=== PATIENT | male | born 1965 | race Caucasian/White ===

== ENCOUNTER 2019-03-29 10:26 | Outpatient (REF) | payer BC, SELFPAY ==
[2019-03-29 19:57] LABS: Absolute Basophil Count 0.02 k/cumm (0.0-0.2); Absolute Eosinophil Count 0.04 k/cumm (0.0-0.7); Absolute Lymphocyte Count 1.25 k/cumm (1.2-3.4); Absolute Monocyte Count 0.34 k/cumm (0.11-0.7); Absolute Neutrophil Count 2.51 k/cumm (1.2-6.7); Basophils % 0.5; HCT 43.6 % (40.0-50.0); HGB 14.4 g/dL (13.5-17.5); Mean Corpuscular Hemoglobin 30.2 pg (27.0-33.0); Mean Corpuscular Volume 91.4 fL (80-95); Monocytes % 8.2; Neutrophils % 60.3; Platelet Count 141 x1000/uL (130-400); RBC 4.77 m/cumm (4.50-6.00); RBC Distribution Width 13.3 % (11.8-14.1); White Blood Cell Count 4.16 k/cumm (4.4-10.8)
[2019-03-29 20:17] LABS: Anion Gap 10.5 mmol/L (3-11); BUN 18 mg/dL (7-18); CO2 26.5 mmol/L (21.0-32.0); CREATININE 0.67 mg/dL (0.70-1.30); Chloride 106 mmol/L (98-107); Glucose 96 mg/dL (70-100); Sodium 143 mmol/L (136-145); TSH 1.66 uIU/mL (0.358-3.74)
[2019-03-29 20:52] LABS: Ferritin 78 ng/mL (8-388)
[2019-03-31 07:09] LABS: Vitamin D 25 Total 25.9 ng/ml (30-100)
[2019-03-31 09:45] LABS: PSA, Screening 0.6 ng/ml (0-3.5)
== END 2019-03-29 10:46 ==
LOC: NCHCN 10:26
PROVIDERS: PCP Family Medicine; Visit Provider Nurse Practitioner Family
DX: Z00.00 Encounter for general adult medical examination without abnormal findings (principal); R53.83 Other fatigue; R45.84 Anhedonia; Z12.5 Encounter for screening for malignant neoplasm of prostate
CPT/HCPCS: 80048; 82306; 84153; 82728; 84443; 85025

== ENCOUNTER 2019-06-27 10:13 | Day surgery (SDC) | payer OTHER, SELFPAY ==
--- NOTE | 2019-06-27 06:44 | W.COLOREPORT ---
Date of service: 06/27/19 Time of Service: 11:11 Colonoscopy Report Date of procedure: 06/27/19 Pre-op diagnosis general: Colon Cancer Screening Post-op diagnosis procedure note: other (polyps) Procedure: Colonoscopy with polypectomy Surgeon: Ashly Brooks Anesthesia proc note operative: other (General/ ASA 2/Casey Gallegos CRNA) Estimated blood loss (mL): 3 Pathology: other (Rectal polyp, sigmoid colon x2, descending colon polyp) Complications: None Disposition: same day Indications: Mr. Hennessy was seen in the office for his first Colonoscopy. He has no family history of colon cancer that he is aware of. Risks, benefits and complications have been reviewed. Complications include but are not limited to bleeding, pain, perforation, missed small lesion/polyp, sore throat, aspiration and adverse reaction to the medications. Questions were entertained and answered to their satisfaction and they wished to proceed. No guarantees were given or implied. Prep: Miralax/Dulcolax Procedure Start Time: 11:11 Procedure End Time: 11:39 Retraction Time: 14 minutes Findings: 3 small polyps Procedure Description: After informed consent was obtained the patient was taken to the procedure room and placed in a left decubitous position. Monitors were applied and a time out was done. The patients name, date of , procedure, allergies to medications and metal in their body was reviewed. The patient was then sedated. Once sedated and comfortable a rectal exam was done. External exam was normal. Internal exam revealed a normal sphincter tone and no palpable masses. The prostate felt smooth. The scope was then introduced and retro-flexed. No internal hemorrhoids were identified. There was a polyp noted at the proximal rectum and it was removed with forceps. The scope was then advanced to the cecum without difficulty. The TI and appendiceal orifice were identified. The prep was adequate. The scope was then slowly retracted over 14 minutes back into the rectum. Polyps were removed with cold forcpes in the descending colon x1, sigmoid colon x2 and rectum x1. The scope was removed and the patient was woken up and taken back to Same day surgery in stable condition. The patient tolerated the procedure well and there were no immediate complications. Follow up: The patient should follow up in 3-5 years unless they develop changes in bowel habits or other new gastrointestinal complaints.
--- NOTE | 2019-06-27 06:45 | W.PM.DSUDISC ---
Discharge Plan Disposition Patient Disposition: HOME Condition: Good Discharge Details Reason For Visit: Colonoscopy Attending Provider: Ashly Brooks Primary Care Provider: Harika Munoz V Home Meds and New Rx's Prescriptions: Continued ibuprofen 200 mg capsule 600 mg PO PRN RF: 0 cholecalciferol (vitamin D3) 1,000 unit capsule 1,000 unit PO DAILY RF: 0 Discontinued polyethylene glycol 3350 17 gram/dose powder 238 g PO ONCE Qty: 238 RF: 0 bisacodyl [Dulcolax (bisacodyl)] 5 mg tablet,delayed release (DR/EC) 5 mg PO ONCE Qty: 4 RF: 0 No Action multivitamin [Daily Multi-Vitamin] Tablet 1 tab PO DAILY RF: 0 cyanocobalamin (vitamin B-12) [Vitamin B-12] 1,000 mcg Tablet 1,000 mcg PO DAILY RF: 0 Discharge Instructions Instructions: Colonoscopy (DC), Colorectal Polyps (GEN) Additional Instructions: Findings: 4 small polyps Follow up: 3-5 years Please call if you develop: fevers >101.5 Nausea or Vomiting Abdominal pain that is not transient DAY SURGERY UNIT POST ENDOSCOPY INSTRUCTIONS 1. Because there will be medication in your system for the next 24 hours, you may feel a little sleepy. Your coordination will be affected. Therefore: a. Do not drive or operate dangerous equipment for 24 hours. b. Do not drink alcohol beverages for 24 hours (not even beer). c. Plan to go home and rest for the day. 2. Generally there are no restrictions on your activity after a day or so has gone by, but you may feel a bit fatigued for a few days. 3 After you arrive home you may have a light meal and return to a normal diet as you can tolerate it without feeling sick to your stomach. 4. After surgery, you may feel pain or discomfort. This should be only transient, but if it persists please contact your doctor. 5. If there are any questions regarding the findings of your procedure, please feel free to contact your doctor. 6. If you are unable to contact your doctor with a problem, contact the hospital at [phone]. 7. Continue all your regular medications unless directed otherwise. I understand the above instructions and have no questions. Signature of Patient or Responsible Adult Escort Date/Time Name of Responsible Adult Escort Signature of Nurse Date/Time Activity:: Activity as Tolerated Diet:: As Tolerated Discharge Orders Discharge Orders: Discharge Order (Routine); Ordered 06/27/19 Ordered By: Ashly Brooks DS: Diagnosis Discharge Diagnosis (1) S/P colonoscopy: Status: Acute (2) Colorectal polyps: Status: Acute
[2019-06-27 10:13] VITALS: BP 121/74; PULSE 71; RESP 17; TEMP 36.4; O2SAT 98
[2019-06-27] MEDS: Lactated Ringers 1,000 ML 80 ML IV (10:53)
--- NOTE | 2019-06-27 11:11 | BOWEL_PTH ---
PATIENT: Miguel Hennessy LOC: [facility] U#:[id number] AGE/SX: 54/M ROOM: RE06/27/[address]: Ashly Brooks MD : 1965 BED: DIS: 06/27/2019 SPEC #: [id number] RECD: 06/27/19 12:59 STATUS: IRIS REQ #: [id number] KANU: 06/27/19 11:[address]: Ashly Brooks DEPT: Surgical Specimen RECD BY: Rosalia Wolf ENTERED: 06/27/19 13:00 SP TYPE: Bowel OTHR DR: Harika Munoz V Tissues: 1 - BIOPSY BOWEL 2 - BIOPSY BOWEL 3 - BIOPSY BOWEL Procedures: GROSS AND MICRO LEVEL 4 Comments: [id number]
[2019-06-27 12:15] VITALS: BP 109/80; PULSE 63; RESP 16; TEMP 36.3; O2SAT 97
== END 2019-06-27 12:25 | disposition home or self-care (01) ==
LOC: SUR 10:14
PROVIDERS: PCP Family Medicine; Visit Provider Surgery
PROC: 0DJD8ZZ Inspection of Lower Intestinal Tract, Via Natural or Artificial Opening Endoscopic (ICD-10-PCS; CPT 45378; principal; 2019-06-27 11:15)
DX: Z12.11 Encounter for screening for malignant neoplasm of colon (principal); D12.8 Benign neoplasm of rectum; K63.5 Polyp of colon
CPT/HCPCS: 45380; 88305

== ENCOUNTER 2019-08-25 10:22 | Outpatient (REF) | payer OTHER, SELFPAY ==
[2019-08-25 20:43] LABS: Calculated LDL 86 mg/dL; Cholesterol 136 mg/dL (50-200); Glucose 97 mg/dL (70-100); HDL Cholesterol 42 mg/dL (40-60); Triglyceride 43 mg/dL (30-150)
== END 2019-08-25 10:42 ==
LOC: NCHCN 10:22
PROVIDERS: PCP Family Medicine; Visit Provider Nurse Practitioner Family
DX: Z00.00 Encounter for general adult medical examination without abnormal findings (principal)
CPT/HCPCS: 80061; 82947

== ENCOUNTER 2020-01-24 16:19 | Outpatient (REF) | payer OTHER, SELFPAY ==
[2020-01-24 18:55] LABS: Abs Immature Grans 0.01 k/cumm (0.0-0.09); Absolute Basophil Count 0.04 k/cumm (0.0-0.2); Absolute Eosinophil Count 0.05 k/cumm (0.0-0.7); Absolute Lymphocyte Count 1.51 k/cumm (1.2-3.4); Absolute Monocyte Count 0.31 k/cumm (0.11-0.7); Absolute Neutrophil Count 2.48 k/cumm (1.2-6.7); Basophils % 0.9; Eosinophils % 1.1; HCT 43.3 % (40.0-50.0); HGB 14.1 g/dL (13.5-17.5); Immature Grans % 0.2 %; Lymphocytes % 34.3; Mean Corp. HGB Concentration 32.6 g/dL (32.0-36.0); Mean Corpuscular Hemoglobin 30.1 pg (27.0-33.0); Mean Corpuscular Volume 92.5 fL (80-95); Mean Platelet Volume 12.9 fL (8.0-11.0); Neutrophils % 56.5; Platelet Count 168 x1000/uL (130-400); RBC 4.68 m/cumm (4.50-6.00); RBC Distribution Width 13.6 % (11.8-14.1)
[2020-01-24 19:43] LABS: ALT 29 U/L (16-63); AST 17 U/L (15-37); Alkaline Phosphatase 84 U/L (46-116); Anion Gap 9.5 mmol/L (3-11); BUN 17 mg/dL (7-18); Bilirubin, Total 0.4 mg/dL (0.2-1.0); CO2 26.5 mmol/L (21.0-32.0); CREATININE 0.77 mg/dL (0.70-1.30); Calcium 8.8 mg/dL (8.5-10.1); Chloride 104 mmol/L (98-107); Glucose 133 mg/dL (74-106); Potassium 4.1 mmol/L (3.5-5.1); Sodium 140 mmol/L (136-145); TSH 1.05 uIU/mL (0.36-3.74); Total Protein 6.8 g/dL (6.4-8.2); Vitamin B12 828 pg/mL (193-986)
[2020-01-24 20:54] LABS: ESR 8 mm/hr (1-20)
[2020-01-24 20:58] LABS: C-Reactive Protein 0.08 mg/dL (0.0-0.3)
[2020-01-26 04:40] LABS: Vitamin D 25 Total 44.7 ng/ml (30-100)
[2020-01-26 11:39] LABS: Hepatitis C Ab w Rflx HCV PCR Negative (Negative)
[2020-01-26 15:25] LABS: Hemoglobin A1C 5.5 % (3.8-5.6)
== END 2020-01-24 16:39 ==
LOC: NCHCN 16:19
PROVIDERS: PCP Family Medicine; Visit Provider Nurse Practitioner Family
DX: R53.83 Other fatigue (principal); G47.33 Obstructive sleep apnea (adult) (pediatric); R45.84 Anhedonia; Z11.59 Encounter for screening for other viral diseases
CPT/HCPCS: 80053; 82306; 85652; 86803; 82607; 83036; 84443; 85025; 86140

== ENCOUNTER 2021-03-15 04:05 | Outpatient (CLI) | payer OTHER, SELFPAY ==
--- NOTE | 2021-03-15 | DI.MRI_ITS ---
Exam(s) MR BRAIN WO EXAM: MR BRAIN WO CLINICAL HISTORY: HEADACHE, R51.9 TECHNIQUE: Multiplanar multisequence MRI of the brain was performed. COMPARISON: No exams were available for comparison FINDINGS: The ventricular system is normal in appearance. There are scattered areas of abnormal signal in periventricular white matter sparing the corpus callo sum, the pattern is consistent with microvascular ischemic changes but other etiologies are not exclu ded.. The orbital and temporal bone structures appear intact as does the pituitary. Diffusion weighted imaging shows no evidence of infarction. Susceptibility weighted imaging shows no evidence of intracranial hemorrhage. There is normal flow void in the pala of Adams vasculature. IMPRESSION: Nonspecific areas of periventricular white matter signal abnormality sparing the corpus callosum. Fi ndings are consistent with microvascular ischemic changes but other etiologies including demyelinatin g process or inflammatory process are not excluded. Additional evaluation with contrast enhanced MR may be considered if clinically appropriate. DATA REPOSITORY:
== END 2021-03-15 04:25 ==
PROVIDERS: PCP Family Medicine; Visit Provider Family Medicine
DX: R51.9 Headache, unspecified (principal); R90.82 White matter disease, unspecified
CPT/HCPCS: 70551

== ENCOUNTER 2024-06-27 07:01 | Day surgery (SDC) | payer OTHER, SELFPAY ==
--- NOTE | 2024-06-26 15:27 | PDOC.DSDIS_ITS ---
Date of service: 06/27/24 Time of Service: 09:01 Discharge Plan Disposition Patient Disposition: Home Condition: Good Discharge Details Reason For Visit: creening colonoscopy Attending Provider: Cory Martínez Primary Care Provider: Harika Munoz V Home Meds and New Rx's Prescriptions: Continued ibuprofen 200 mg capsule 600 mg PO PRN modafinil 200 mg tablet 200 mg PO DAILY multivitamin [Daily Multi-Vitamin] Tablet 1 tab PO DAILY Discontinued bisacodyl [Dulcolax (bisacodyl)] 5 mg tablet,delayed release (DR/EC) 5 mg PO ONCE Qty: 4 0RF Rx Instructions: Take per colonoscopy instructions provided by ordering providers office polyethylene glycol 3350 17 gram/dose powder 17 g PO ONCE Qty: 238 0RF Rx Instructions: Take per colonoscopy instructions provided by ordering providers office Discharge Instructions Instructions: Colon polyps, Diverticulosis Additional Instructions: Miguel, We were able to complete your colonoscopy today without any difficulty. Your prep was excellent, and I could see everything fine. I did find and remove 1 small area of polyp today. I am optimistic this might be a hyperplastic polyp, which is not at all dangerous. To be safe, however, I will send this off to the pathologist for their review. Incidentally, you also have a little bit of dive rticulosis. Diverticula are little weak spots in the wall of the colon that typically accumulate as we get older. I have attached a little bit of information here about basic approaches to diverticulosis. My basic recommendation is to have plenty of fiber in your diet, avoid constipation, and treat any symptoms of constipation if you experience that. It will take about a week or 2 to get the results from the polyp report, and once we have those, the office will be in touch with any other recommendations. If you have any questions in the meantime, please do not hesitate to call. 1. If tolerated, consume a soft, low fiber diet for 1-2 days. 2. Do not drive, drink alcohol, operate machinery, make critical decisions, or do activities that require coordination or balance for 24 hours. 3. Because air was put into your colon during the procedure, expelling air from your rectum (passing gas or farting) is normal. 4. You may not have a bowel movement for 1-3 days because of the colonoscopy prep. This is normal. 5. Go directly to the emergency room if you notice any of the following: Develop chills (warm to touch), or if you have a thermometer and your temperature is above 101 Difficulty breathing or difficultly swallowing Persistent vomiting Severe abdominal pain, other than gas cramps Severe chest pain Black, tarry stools Any bleeding ? exceeding one tablespoon 6. Call your physician if the site where your intravenous was started becomes red, swollen, painful, and warm to touch. 7. Your physician has reviewed your pre-procedure medications. Please continue to take those medications as previously ordered. You will be given specific information/education regarding any changes to your medications before leaving. Activity:: Activity as Tolerated Diet:: As Tolerated Discharge Orders Discharge Orders: Discharge Order (Routine); Ordered 06/26/24 Ordered By: Cory Martínez DS: Diagnosis Discharge Diagnosis (1) Encounter for screening colonoscopy: Status: Acute Asessment and Plan: Follow-up on polypectomy results
--- NOTE | 2024-06-26 15:28 | COLE_ITS ---
Date of service: 06/27/24 Time of Service: 09:04 Colonoscopy Report Date of procedure: 06/27/24 Pre-op diagnosis general: screening colonoscopy Post-op diagnosis procedure note: other (Colon polyp, diverticulosis) Procedure: colonoscopy with polypectomy Surgeon: Cory Martínez Anesthesia Type: General:No Airway Estimated blood loss (mL): 5 Pathology: other (0.25 cm flat polyp at 100 cm from the anus) Complications: None Disposition: same day Indications: Miguel is a 59 year old man with a history of villous adenomas who needs his next screening colonoscopy Prep: Miralax/Dulcolax Procedure Start Time: :24 Procedure End Time: 08:45 Retraction Time: 12 Findings: Sigmoid diverticulosis, 0.25 cm polyp at 100 cm Procedure Description: After the induction of anesthesia, and with the patient in left lateral decubitus position, I began by performing an external anorectal exam.? Perineum and skin were normal, as was the anal verge.? There was no evidence of external hemorrhoids.? Next, I performed a digital rectal exam.? I did not appreciate any abnormal findings.? Next, I advanced a colonoscope into the rectal vault.? I performed retroflexion.? This appeared normal.? Using insufflation, I then advanced the colonoscope beyond the rectal folds and into the sigmoid colon before advancing towards the cecum.? The quality of the prep was outstanding.? The scope was noted to be in the cecum by identification of the ileocecal valve and appendiceal orifice.? I then began withdrawing the colonoscope using repeated irrigation as necessary for full evaluation of the colonic mucosa. Around 100 cm from the anal verge I identified a 0.25 cm polyp. ?It appeared flat in character. Narrowband imaging was used to assist with the analysis. Grossly, it appeared to be a hyperplastic polyp, however given his villous adenomas in the past, I felt removal of the polyp was the safest option at this point. ?I was able to remove this with a cold forcep polypectomy. ?I examined the site, and there was minimal bleeding. ?Once this was completed, I continued to withdraw the scope and examine the remainder of the colonic mucosa. There was a little bit of sigmoid diverticulosis. Once the scope was withdrawn to the level of the rectum, great care was taken to examine portions of the rectal folds.? Finally, the scope was withdrawn and the patient was brought to the same-day surgery recovery unit as the anesthetic wore off. ?The findings and instructions were shared with the patient prior to discharge. [place] Bowel Prep Second [place] Bowel Prep Right Colon: 3 Left Colon: 3 Transverse Colon: 3 Total Score: 9
[2024-06-27 07:21] VITALS: BP 142/90; PULSE 77; RESP 16; TEMP 36; O2SAT 97
[2024-06-27] MEDS: Lactated Ringers 1,000 ML 80 ML IV (07:26)
--- NOTE | 2024-06-27 07:42 | W.ANESPRE ---
General Info Date of Service Date Performed: 06/27/24 Height: 5 ft 11 in Weight: 115.2 kg Body Mass Index (BMI): 35.4 Surgical Procedure: Operation Date: 06/27/24 08:20 Proposed Procedure Side Surgeon p Colonoscopy Cory Martínez MD Meds Allergies and Home Medications Allergies Allergy/AdvReac Type Severity Reaction Status Date / Time No Known Allergies Allergy Verified 06/24/24 11:39 Home Medication ?Medication ?Instructions ?Recorded ibuprofen 200 mg capsule 600 mg PO PRN 06/09/19 multivitamin (Daily Multi-Vitamin 1 tab PO DAILY 06/27/19 tablet) modafinil 200 mg tablet 200 mg PO DAILY 05/25/24 Current Visit Medications: Current Medications Generic Name Dose Route Start Last Admin Trade Name Freq PRN Reason Stop Dose Admin Ringer's Solution 1,000 mls @ 80 mls/hr 06/27/24 06:00 06/27/24 07:26 IV 07/24/24 23:59 80 mls/hr INFUSION GÉNESIS Administration IV Miscellaneous Supplies 1 each 06/27/24 06:00 Iv Access IV 07/24/24 23:59 DIRECTED GÉNESIS Ondansetron HCl 4 mg 06/26/24 15:29 Ondansetron 4 Mg/2 Ml Vial IVP 07/26/24 15:28 Q4H PRN PRN Nausea / Vomiting Sodium Chloride 0 ml 06/27/24 06:00 Normal Saline Flush 10 Ml Syr IV 07/24/24 23:59 PRN PRN Sodium Chloride 0 ml 06/27/24 06:00 Normal Saline 10 Ml Vial IJ 07/24/24 23:59 DIRECTED PRN Sterile Water 0 ml 06/27/24 06:00 Water,Injection,Sterile 10 Ml Vial IJ 07/24/24 23:59 DIRECTED PRN PFSH Active Problems Active Problems: Problem Status Onset Code Encounter for screening colonoscopy Acute Z12.11 Colorectal polyps Acute K63.5 Medical History Medical History (Updated 06/26/24 @ 15:27 by Cory Martínez MD) CARMINE (obstructive sleep apnea) Snoring Concussion with loss of consciousness <= 30 min Fatigue Restless leg syndrome Pt. denies Anhedonia Sleep disturbance, unspecified Surgical History Surgical History (Updated 06/27/24 @ 07:20 by Radha Larkin RN) History of knee surgery S/P colonoscopy (~06/27/19) tubular adenoma H/O excision of mass excision of lump Left arm - 2011 History of open reduction and internal fixation (ORIF) procedure Left ankle - 2011 Tobacco Smoking/Tobacco Use Status: Former Tobacco Use Alcohol Alcohol Intake: current Alcohol intake frequency: a few times a month Alcohol type: beer Substance Use Substance use: Never Substance use type: does not use Vital Signs and Lab Results Vital Signs Most Recent Vital Signs in EMR: Most Recent Vital Signs Temp Pulse Resp BP Pulse Ox 36.0 C L 77 16 142/90 H 97 06/27/24 07:21 06/27/24 07:21 06/27/24 07:21 06/27/24 07:21 06/27/24 07:21 Lab Results Blood Type / Crossmatch: No Data to Display Complete Blood Count: No Data to Display Complete Metabolic Panel: No Data to Display Liver Function Panel: No Data to Display Coagulation Panel: No Data to Display Cardiac Panel: No Data to Display Arterial Blood Gas: No Data to Display Venous Blood Gas: No Data to Display Pancreas Panel: No Data to Display Thyroid Panel: No Data to Display Infectious Disease: No Data to Display Blood Cultures: No Data to Display Toxicology Panel: No Data to Display Anesthesia Assessment and Plan Anesthesia History Personal History: No History of Anesthesia Complications Family History: No Family History of Anesthesia Complications Exercise Tolerance Exercise Tolerance: Metabolic Equivalents>4 Pertinent Negatives Pertinent Negatives: No Symptoms of GERD, No Major Cardiovascular Symptoms or Complaints, No Major Pulmonary Symptoms or Complaints and No History of CVA/TIA Cardiac & Pulmonary Exam Cardiac Exam: Normal S1/S2 Heart Sounds Pulmonary Exam: Clear Bilateral Breath Sounds Implantable Cardiac Device Does patient have a Pacemaker or an ICD?: No Airway Exam Known Difficult Airway: No Mallampati Class: 3 Mouth Opening: Normal (> 3cm) Thyromental Distance: Greater than 3 cm Facial Hair: Full Christiansen Neck Range of Motion: Limited ROM (slight stiffness side to side) Neck Circumference: Normal Teeth Condition: Normal Dentition ASA Classification ASA Score: ASA 2 Emergency Case?: No NPO Status NPO Status: NPO Clears >2 hours, Solids >8 hours Anesthesia Plan Resuscitation Status: Full Code Anesthesia Technique: General Anesthesia Airway Planned: Natural Airway Monitors Used: Standard Monitors Preoperative Comments:: Discussed using CPAP even for naps today d/t sedation.
[2024-06-27 08:11] VITALS: BMI 35.4
--- NOTE | 2024-06-27 08:39 | BOWEL_PTH ---
PATIENT: Miguel Hennessy LOC: [facility] U#:[id number] AGE/SX: 59/M ROOM: RE06/27/[address]: Cory Martínez MD : 1965 BED: DIS: 06/27/2024 SPEC #: [id number] RECD: 06/27/24 12:40 STATUS: IRIS REQ #: [id number] KANU: 06/27/24 08:[address]: Cory Martínez DEPT: Surgical Specimen RECD BY: Rosalia Wolf ENTERED: 06/27/24 12:41 SP TYPE: Bowel OTHR DR: Harika Munoz V Tissues: 1 - BIOPSY BOWEL Procedures: GROSS AND MICRO LEVEL 4 Comments: [id number]
[2024-06-27 08:50] VITALS: BP 114/80; PULSE 74; RESP 17; TEMP 36.2; O2SAT 93
--- NOTE | 2024-06-27 09:18 | W.ANESPOSTOP ---
Postoperative Evaluation Date, Time and Location Date Performed: 06/27/24 Time Performed: 08:54 Patient Location: Day Surgery Unit Vital Signs Most Recent Imported Vital Signs: Most Recent Vital Signs Temp Pulse Resp BP Pulse Ox 36.2 C L 74 17 114/80 93 06/27/24 09:13 06/27/24 09:13 06/27/24 09:13 06/27/24 09:13 06/27/24 09:13 Pain Score Most Recent Pain Score: Most Recent Pain Score Pain Level 0 06/27/24 09:13 Assessment Mental Status: Awake (Alert & Oriented to Patient Baseline) Airway and Respiratory Function: Patent airway with normal (patient baseline) respiratory exam Cardiovascular Function: Hemodynamically Stable Hydration Status: Adequately Hydrated Nausea & Vomiting: No Nausea or Vomiting Pain: Pt. Denies Any Pain Peripheral Nerve Block: Patient did not receive a nerve block
[2024-06-27 09:35] VITALS: BP 136/84; PULSE 64; RESP 16; TEMP 36.2; O2SAT 98
== END 2024-06-27 09:45 | disposition home or self-care (01) ==
LOC: SUR 07:01
PROVIDERS: PCP Family Medicine; Visit Provider Surgery
PROC: 0DJD8ZZ Inspection of Lower Intestinal Tract, Via Natural or Artificial Opening Endoscopic (ICD-10-PCS; CPT 45378; principal; 2024-06-27 08:15)
DX: Z12.11 Encounter for screening for malignant neoplasm of colon (principal); K63.5 Polyp of colon; K57.30 Diverticulosis of large intestine without perforation or abscess without bleeding; K63.89 Other specified diseases of intestine
CPT/HCPCS: 45380; 88305; J2704

== ENCOUNTER 2025-06-23 10:22 | Outpatient (REF) | payer OTHER, SELFPAY ==
[2025-06-23 15:52] LABS: HCT 39.9 % (40.0-50.0); HGB 14.7 g/dL (13.5-17.5); MCH 34.1 pg (27.0-33.0); MCHC 36.8 % (32.0-36.0); MCV 93 fL (80-95); MPV 12.3 fL (8.0-11.0); Platelet Count 166 10^3/uL (130-400); RBC 4.31 10^6/uL (4.36-5.78); RDW 13.1 % (11.8-14.1); RDW-SD 43.3 fL; WBC 4.22 10^3/uL (4.4-10.8)
[2025-06-23 16:28] LABS: ALT 23 U/L (16-63); AST 15 U/L (15-37); Albumin 4.0 g/dL (3.4-5.0); Alkaline Phosphatase 102 U/L (46-116); Anion Gap 7.8 mmol/L (3-11); BUN 16 mg/dL (7-18); Bilirubin, Total 0.6 mg/dL (0.2-1.0); CO2 27.2 mmol/L (21.0-32.0); Calcium 8.8 mg/dL (8.5-10.1); Calculated LDL 98 mg/dL (<100); Chloride 106 mmol/L (98-107); Cholesterol 153 mg/dL (<200); Estimated GFR 106.14 (mL/min/1.73m2); Glucose 101 mg/dL (74-106); HDL Cholesterol 46 mg/dL (>or=40); Potassium 3.7 mmol/L (3.5-5.1); Sodium 141 mmol/L (136-145); TSH (W/Ref FT4) 1.95 uIU/mL (0.36-3.74); Total Protein 7.2 g/dL (6.4-8.2); Triglyceride 49 mg/dL (<150)
[2025-06-23 17:16] LABS: Hemoglobin A1C 5.6 % (<5.7)
== END 2025-06-23 10:23 | disposition home or self-care (01) ==
LOC: NCHCN 10:22
PROVIDERS: PCP Family Medicine; Visit Provider Family Medicine
DX: R53.83 Other fatigue (principal); Z13.220 Encounter for screening for lipoid disorders
CPT/HCPCS: 80053; 80061; 85027; 83036; 84443